=== PATIENT | male | born 1970 | race Caucasian/White ===

== ENCOUNTER 2019-01-10 08:13 | Day surgery (SDC) | payer BC ==
[~2019-01-10 08:13] MED LIST: Lidocaine 1% with EPINEPHrine 1:100,000 50 ML MDV ONE; Midazolam 1 MG/ML 2 ML SDV ONE; Propofol 200 MG/20 ML SDV ONE; Sodium Chloride 0.9% 10 ML ONE; Sodium Tetradecyl Sulfate 1% 20 MG/2 ML SDV ONE; fentaNYL 100 MCG/2 ML SDV ONE
[2019-01-10] MEDS ORDERED: Sodium Chloride 0.9% 1,000 ML IV SCH (09:00)
[2019-01-10] MEDS ORDERED: Propofol 200 MG/20 ML SDV ONE (10:50)
[2019-01-10] MEDS: Lidocaine 1% w/EPINEPHrine 50 ML, Sodium Bicarbonate 5 MEQ in Sodium Chloride 0.9% 950 ML INJECT SCH ×2 (10:53→10:54)
--- NOTE | 2019-01-10 11:45 | OR ---
DATE OF PROCEDURE: 01/10/2019 SURGEON: Baltazar Muñoz MD PROCEDURES: 1. Radiofrequency ablation of left greater saphenous vein. 2. Radiofrequency ablation of right greater saphenous vein. 3. Sclerotherapy left leg, multiple. 4. Sclerotherapy right leg, multiple. 5. Compression wrap, left leg (36424). 6. Compression wrap, right leg (19841). COMPLICATIONS: None. FLOAT TENDER: None. ANESTHESIA: MAC. RISKS: Risks, benefits, alternatives, and limitations including, but not limited to infection, bleeding, and DVT formation were explained to the patient and wished to proceed. PROCEDURE IN DETAIL: The patient was placed in a supine position. Left GSV was accessed first at the level of the ankle. This was accessed using a 21-gauge needle, exchanged for a 7-Setswana sheath with 1% lidocaine anesthetizing over a 35,000th wire. RFA probe was advanced to 3 cm from the saphenofemoral junction, which would be verified a second and a third time. Tumescent fluid was injected in a 1-cm jacket around this and verified a second and a third time. Direct even pressure was held as the probe was deployed x2 proximally and distally, and x1 in all other segments. Direct pressure was held for 10 minutes. Dermabond was applied. The right leg was then performed in a same manner, same fashion, same technique, in the same sequence using the same equipment. Sclerotherapy was then performed in left and right legs using 0.33% sodium tetradecyl. This was always drawn back to ensure intravascular injection only. No more than 2 mm was injected in one location, 4 on the right, 4 on the left. Two-layer two-stage compression distal proximal gradient 20 mmHg pressure was performed on left and right legs using [id number] fashion. The patient tolerated the procedure well. Baltazar Muñoz MD /[id number]
== END 2019-01-10 12:31 | disposition home or self-care (01) ==
LOC: JP.SDS 08:13
PROVIDERS: ATTEND Surgery
DX: I87.2 Venous insufficiency (chronic) (peripheral) (principal); J44.9 Chronic obstructive pulmonary disease, unspecified
CPT/HCPCS: 36471; 36475; J1642; J2250; J2704; J3010; J7030; J3490